=== PATIENT | female | born 1990 ===

== ENCOUNTER 2017-06-18 17:24 | Emergency (ER) | payer BC, OTHER ==
[~2017-06-18] VITALS: Ht 154.9 cm; Wt 57.1 kg
[~2017-06-18 17:24] MED LIST: ALPR.5 PO; HYDR1TAB94 PO; HYDSUL200 PO; IBUP600 PO; METO25ER PO
[2017-06-18] MEDS ORDERED: MESALAMINE1.2 GM PO (18:38)
[2017-06-18 19:25] LABS: Source, Urine Clean Catch
[2017-06-18 19:26] LABS: BASOPHILS ABSOLUTE AUTO 0.01 K/mm3 (0.00-0.23); BASOPHILS PERCENT AUTO 0 % (0-2); EOSINOPHILS ABSOLUTE AUTO 0.05 K/mm3 (0.00-0.68); EOSINOPHILS PERCENT AUTO 1 % (0-6); Hematocrit 35.7 % (33.0-51.0); Hemoglobin 11.6 g/dL (11.5-16.0); IMMATURE GRAN ABSOLUTE AUTO 0.03 K/mm3 (0.00-0.10); IMMATURE GRAN PERCENT AUTO 0 % (0-1); LYMPHOCYTES ABSOLUTE AUTO 1.09 K/mm3 (0.84-5.20); LYMPHOCYTES PERCENT AUTO 16 % (21-46); MONOCYTES ABSOLUTE AUTO 0.46 K/mm3 (0.16-1.47); MONOCYTES PERCENT AUTO 7 % (4-13); Mean Corpuscular HGB 26.7 pg (26.0-34.0); Mean Corpuscular HGB Conc 32.5 g/dL (31.5-36.5); Mean Corpuscular Volume 82 fL (80-100); NEUTROPHILS PERCENT AUTO 77 % (41-73); Platelet Count 238 K/mm3 (150-400); RDW Coefficient Variation 13.6 % (11.7-14.2); RDW Standard Deviation 40.8 fL (35.1-46.3); Red Blood Cell Count 4.34 M/mm3 (3.80-5.20); White Blood Cell Count 6.94 K/mm3 (4.00-11.30)
[2017-06-18 19:30] LABS: Appearance, Urine Hazy (Clear); Bilirubin, Urine Neg (Neg); Blood, Urine Neg (Neg); Color, Urine Yellow (P-Yellow); Glucose Qualitative, Urine Neg (Neg); Ketones, Urine Neg (Neg); Leukocyte Esterase, Urine 1+ (Neg); Nitrite, Urine Neg (Neg); Protein, Urine Neg (Neg); Specific Gravity, Urine 1.015 (1.003-1.022); Urobilinogen, Urine NORM (Normal); pH, Urine 6.5 (5.0-8.0)
[2017-06-18 19:45] LABS: Red Blood Cells, Urine Not Seen /hpf (0-2); Squamous Epithelial Cells Many /hpf (Few)
[2017-06-18 19:46] LABS: Bacteria Few /hpf
[2017-06-18 19:55] LABS: Alanine Aminotransfer (ALT/SGP 19 U/L (12-78); Albumin, Blood 3.2 g/dL (3.4-5.0); Albumin/Globulin Ratio 0.6 (0.8-1.8); Alk Phos 112 U/L (50-136); Anion Gap 10 mmol/L (6-16); Aspartate Aminotrans (AST/SGOT 20 U/L (12-37); Bilirubin, Total 0.3 mg/dL (0.1-1.0); Blood Urea Nitrogen 9 mg/dL (8-24); CO2, Blood 24 mmol/L (21-32); Calcium, Blood 8.6 mg/dL (8.5-10.1); Chloride, Blood 103 mmol/L (98-108); Creatinine, Blood 0.56 mg/dL (0.40-1.00); Glomerular Filtration Rate >60 (60-); Glucose, Blood 87 mg/dL (70-99); Potassium, Blood 3.5 mmol/L (3.5-5.5); Sodium, Blood 137 mmol/L (136-145); Total Protein, Blood 8.2 g/dL (6.4-8.2)
[2018-01-22] MEDS ORDERED: Prednisone20 MG PO (10:07)
[2018-01-22] MEDS ORDERED: Percocet 5-3251 EACH PO (10:07)
[2018-01-25] MEDS ORDERED: SULF500A PO (11:24)
[2018-01-25] MEDS ORDERED: UCERIS9 MG PO (11:24)
[2018-01-25] MEDS ORDERED: HYDACE25S PR (11:24)
[2018-01-25] MEDS ORDERED: BISA10S PR (13:17)
[2018-01-25] MEDS ORDERED: GAVILAX17 GM PO (13:17)
[2018-01-25] MEDS ORDERED: Zofran Odt4 MG SL (13:22)
[2018-02-18] MEDS ORDERED: DOCU100 PO (11:43)
[2018-02-18] MEDS ORDERED: CIPR500 PO (11:44)
[2018-02-18] MEDS ORDERED: METR500 PO (11:45)
[2018-02-18] MEDS ORDERED: GAVILAX17 GM PO (11:46)
[2018-02-18] MEDS ORDERED: PRED10 PO (11:48)
== END 2017-06-18 22:02 | disposition home or self-care (01) ==
LOC: ER 17:24
PROVIDERS: Emergency Medicine; Nurse Practitioner Family
DX: M54.5 Low back pain (principal); R51 Headache; M32.9 Systemic lupus erythematosus, unspecified; Z91.040 Latex allergy status; Z79.899 Other long term (current) drug therapy; I10 Essential (primary) hypertension
CPT/HCPCS: 80053; 81001; 85025; 87086; 96361; 96374; 96375; 99283; J1200; J2405; J2765; J7030